=== PATIENT | female | born 2000 | race Caucasian/White ===

== ENCOUNTER 2023-07-21 11:49 | Day surgery (SDC) | payer OTHER ==
[2023-07-19 17:06] VITALS: BMI 15.2
[2023-07-21 13:22] VITALS: RESP 18
[2023-07-21 13:31] VITALS: BP 105/65; PULSE 78; TEMP 97
== END 2023-07-21 13:47 | disposition home or self-care (01) ==
LOC: FASU-ENDO 11:49
PROVIDERS: ATTEND Internal Medicine Gastroenterology
PROC: 0DB68ZX Excision of Stomach, Via Natural or Artificial Opening Endoscopic, Diagnostic (ICD-10-PCS; 2023-07-21)
PROC: 0DB48ZX Excision of Esophagogastric Junction, Via Natural or Artificial Opening Endoscopic, Diagnostic (ICD-10-PCS; 2023-07-21)
PROC: 0DB98ZX Excision of Duodenum, Via Natural or Artificial Opening Endoscopic, Diagnostic (ICD-10-PCS; principal; 2023-07-21 12:53)
DX: K29.50 Unspecified chronic gastritis without bleeding (principal); K20.90 Esophagitis, unspecified without bleeding
CPT/HCPCS: 81025; 88305-TC; 88342-TC